=== PATIENT | female | born 1945 | race Two or more races ===

== ENCOUNTER 2023-11-22 00:21 | Inpatient (IN) | payer OTHER ==
[~2023-11-22] VITALS: Ht 157.5 cm; Wt 62.1 kg
[2023-11-22] MEDS ORDERED: PLAVIX75 MG (01:27)
[2023-11-22 01:40] LABS: ABG PH 7.498 (7.35-7.45); ABG PO2 52.8 mmHg (80-100); ABG pCO2 31.9 mmHg (35-45); BASE EXCESS 1.8 mmol/l; BICARBONATE 24.2 mmol/l (23-25); SaO2 90.2 %
[2023-11-22 01:41] LABS: Tco2 25.1 mmol/l; allen test SATISFACTORY; o2 21 %; puncture site RADIAL RIGHT
[2023-11-22 02:19] LABS: PH,URINE 5.5 (5.0-8.0); URINE APPEARANCE Turbid; URINE BILIRRUBIN Negative (NEGATIVE); URINE BLOOD Negative; URINE COLOR Yellow; URINE GLUCOSE Negative (NEGATIVE); URINE LEUKOCYTE Negative; URINE NITRATE Negative; URINE PROTEIN 30 (NEGATIVE); URINE UROBILINOGEN 0.2 E.U./dl
[2023-11-22 02:20] LABS: HEMATOCRIT 44.8 % (36.0-45.00); HEMOGLOBIN 15.2 g/dL (12.0-15.00); MEAN CELL VOLUME 88.9 fL (80.00-100.00); MEAN CORPUSCULAR HEMOGLOBIN 30.2 pg (27.00-32.0); MEAN CORPUSCULAR HGB CONC 33.9 g/dl (32.0-36.0); PLATELET COUNT 170 K/uL (150-450); RED BLOOD COUNT 5.04 M/uL (4.00-6.00); RED CELL DISTRIBUTION WIDTH 15.4 % (11.5-14.5)
[2023-11-22 02:23] LABS: URINE BACTERIA 37.7 uL (0.0-1933); URINE EPITHELIAL CELLS 18.2 uL (0.0-38.8); URINE WBC 21.4 uL (0.0-23.2)
[2023-11-22 02:58] LABS: ALBUMIN 3.4 gm/dL (3.4-5.0); BILIRUBIN TOTAL 0.73 mg/dL (0.3-1.2); CALCIUM 10.4 mg/dL (8.5-10.1); CREATININE SERUM 1.32 mg/dL (0.55-1.02); GFR 38.82; GLOBULINA 5.1 G/DL (2.4-3.5); POTASSIUM 3.4 mEq/L (3.5-5.1); TOTAL PROTEIN 8.5 gm/dL (6.4-8.2)
[2023-11-22 02:59] LABS: INR 1.2; PROTHROMBIN TIME 12.4 SECONDS (9.0-11.5)
[2023-11-22 03:02] LABS: PARTIAL THROMBOPLASTIN TIME 42.2 SECONDS (22.0-34.0)
[2023-11-23 06:16] LABS: HEMATOCRIT 37.5 % (36.0-45.00); HEMOGLOBIN 12.7 g/dL (12.0-15.00); MEAN CELL VOLUME 88.7 fL (80.00-100.00); MEAN CORPUSCULAR HGB CONC 33.9 g/dl (32.0-36.0); PLATELET COUNT 150 K/uL (150-450); RED BLOOD COUNT 4.23 M/uL (4.00-6.00); RED CELL DISTRIBUTION WIDTH 15.4 % (11.5-14.5)
[2023-11-23 06:48] LABS: CALCIUM 9.6 mg/dL (8.5-10.1); GFR 53.48; POTASSIUM 3.98 mEq/L (3.5-5.1)
[2023-11-26 07:00] LABS: ALBUMIN 3.2 gm/dL (3.4-5.0); BILIRUBIN TOTAL 0.51 mg/dL (0.3-1.2); CALCIUM 10.5 mg/dL (8.5-10.1); CREATININE SERUM 0.88 mg/dL (0.55-1.02); GFR 61.98; POTASSIUM 3.2 mEq/L (3.5-5.1); TOTAL PROTEIN 7.2 gm/dL (6.4-8.2)
[2023-11-26 11:25] LABS: ABG PH 7.486 (7.35-7.45); ABG pCO2 34.4 mmHg (35-45)
[2023-11-26 11:26] LABS: ABG PO2 59.6 mmHg (80-100); BASE EXCESS 2.4 mmol/l; BICARBONATE 25.4 mmol/l (23-25); SaO2 92.7 %
[2023-11-26 11:27] LABS: Tco2 26.4 mmol/l; allen test SATISFACTORY; o2 21 %; puncture site RADIAL LEFT
[2023-11-26 13:11] LABS: INR 1.13; PARTIAL THROMBOPLASTIN TIME 30.3 SECONDS (22.0-34.0); PROTHROMBIN TIME 11.8 SECONDS (9.0-11.5)
[2023-11-26 17:22] LABS: ALBUMIN 3.1 gm/dL (3.4-5.0); BILIRUBIN TOTAL 0.51 mg/dL (0.3-1.2); CREATININE SERUM 0.86 mg/dL (0.55-1.02); GFR 63.65; GLOBULINA 3.7 G/DL (2.4-3.5); POTASSIUM 3.39 mEq/L (3.5-5.1); TOTAL PROTEIN 6.8 gm/dL (6.4-8.2)
[2023-11-27 06:51] LABS: HEMATOCRIT 42.1 % (36.0-45.00); HEMOGLOBIN 14.1 g/dL (12.0-15.00); MEAN CELL VOLUME 88.9 fL (80.00-100.00); MEAN CORPUSCULAR HEMOGLOBIN 29.8 pg (27.00-32.0); MEAN CORPUSCULAR HGB CONC 33.6 g/dl (32.0-36.0); PLATELET COUNT 194 K/uL (150-450); RED BLOOD COUNT 4.73 M/uL (4.00-6.00); RED CELL DISTRIBUTION WIDTH 14.9 % (11.5-14.5)
[2023-11-27 07:02] LABS: CALCIUM 9.5 mg/dL (8.5-10.1); CREATININE SERUM 1.29 mg/dL (0.55-1.02); GFR 39.87; POTASSIUM 3.22 mEq/L (3.5-5.1)
[2023-11-27 08:22] LABS: ABG PH 7.393 (7.35-7.45); ABG PO2 191.9 mmHg (80-100); ABG pCO2 34.3 mmHg (35-45); BASE EXCESS -3.6 mmol/l; BICARBONATE 20.5 mmol/l (23-25); SaO2 99.6 %; Tco2 21.5 mmol/l; allen test SATISFACTORY; o2 50 %; puncture site RADIAL LEFT
[2023-11-27 14:51] LABS: PH,URINE 5.5 (5.0-8.0); URINE APPEARANCE Clear; URINE BILIRRUBIN Negative (NEGATIVE); URINE BLOOD Negative; URINE COLOR Yellow; URINE GLUCOSE Negative (NEGATIVE); URINE LEUKOCYTE Trace; URINE NITRATE Negative; URINE PROTEIN 30 (NEGATIVE)
[2023-11-27 14:56] LABS: URINE BACTERIA 541.7 uL (0.0-1933); URINE EPITHELIAL CELLS 13.5 uL (0.0-38.8); URINE RBC 9.9 uL (0.0-20.8); URINE WBC 13.7 uL (0.0-23.2)
[2023-11-27 15:58] LABS: ABG PH 7.386 (7.35-7.45); ABG pCO2 37.8 mmHg (35-45)
[2023-11-27 15:59] LABS: ABG PO2 56.1 mmHg (80-100); BASE EXCESS -2.4 mmol/l; BICARBONATE 22.2 mmol/l (23-25); SaO2 88.2 %; Tco2 23.3 mmol/l; allen test SATISFACTORY; o2 40 %; puncture site RADIAL RIGHT
[2023-11-28 06:17] LABS: HEMATOCRIT 31.6 % (36.0-45.00); MEAN CELL VOLUME 87.5 fL (80.00-100.00); MEAN CORPUSCULAR HEMOGLOBIN 30.6 pg (27.00-32.0); MEAN CORPUSCULAR HGB CONC 34.9 g/dl (32.0-36.0); RED BLOOD COUNT 3.61 M/uL (4.00-6.00); RED CELL DISTRIBUTION WIDTH 15.5 % (11.5-14.5)
[2023-11-28 06:50] LABS: CALCIUM 8.3 mg/dL (8.5-10.1); CREATININE SERUM 0.67 mg/dL (0.55-1.02); GFR 84.9; MAGNESIUM 2.2 mg/dL (1.8-2.4)
[2023-11-28 07:09] LABS: PLATELET COUNT 127 K/uL (150-450)
[2023-11-28 07:55] LABS: POTASSIUM 2.74 mEq/L (3.5-5.1)
[2023-11-28 09:02] LABS: ABG PH 7.501 (7.35-7.45); ABG PO2 148.2 mmHg (80-100); ABG pCO2 29.1 mmHg (35-45); BASE EXCESS 0.3 mmol/l; BICARBONATE 22.3 mmol/l (23-25); SaO2 99.5 %; Tco2 23.2 mmol/l
[2023-11-28 09:03] LABS: allen test SATISFACTORY; o2 40 %; puncture site RADIAL RIGHT
[2023-11-29 06:27] LABS: HEMATOCRIT 30.2 % (36.0-45.00); HEMOGLOBIN 10.2 g/dL (12.0-15.00); MEAN CELL VOLUME 89.3 fL (80.00-100.00); MEAN CORPUSCULAR HEMOGLOBIN 30.1 pg (27.00-32.0); MEAN CORPUSCULAR HGB CONC 33.7 g/dl (32.0-36.0); PLATELET COUNT 130 K/uL (150-450); RED BLOOD COUNT 3.39 M/uL (4.00-6.00); RED CELL DISTRIBUTION WIDTH 15.1 % (11.5-14.5)
[2023-11-29 07:15] LABS: CALCIUM 8.9 mg/dL (8.5-10.1); CREATININE SERUM 0.45 mg/dL (0.55-1.02); GFR 134.41; POTASSIUM 3.43 mEq/L (3.5-5.1)
[2023-11-30 07:35] LABS: HEMATOCRIT 29.2 % (36.0-45.00); MEAN CELL VOLUME 88.2 fL (80.00-100.00); MEAN CORPUSCULAR HEMOGLOBIN 30.2 pg (27.00-32.0); MEAN CORPUSCULAR HGB CONC 34.3 g/dl (32.0-36.0); PLATELET COUNT 146 K/uL (150-450); RED BLOOD COUNT 3.31 M/uL (4.00-6.00); RED CELL DISTRIBUTION WIDTH 15.9 % (11.5-14.5)
[2023-12-02 07:22] LABS: CALCIUM 8.7 mg/dL (8.5-10.1); CREATININE SERUM 0.54 mg/dL (0.55-1.02); GFR 108.9
[2023-12-02 08:32] LABS: POTASSIUM 2.74 mEq/L (3.5-5.1)
[2023-12-03 07:04] LABS: HEMATOCRIT 29.3 % (36.0-45.00); HEMOGLOBIN 10.1 g/dL (12.0-15.00); MEAN CELL VOLUME 88.1 fL (80.00-100.00); MEAN CORPUSCULAR HEMOGLOBIN 30.4 pg (27.00-32.0); MEAN CORPUSCULAR HGB CONC 34.5 g/dl (32.0-36.0); PLATELET COUNT 211 K/uL (150-450); RED BLOOD COUNT 3.32 M/uL (4.00-6.00); RED CELL DISTRIBUTION WIDTH 15.7 % (11.5-14.5)
[2023-12-03 07:19] LABS: CALCIUM 8.4 mg/dL (8.5-10.1); CREATININE SERUM 0.59 mg/dL (0.55-1.02); GFR 98.32
[2023-12-03 07:29] LABS: POTASSIUM 3.02 mEq/L (3.5-5.1)
[2023-12-04 11:15] LABS: CALCIUM 8.8 mg/dL (8.5-10.1); CREATININE SERUM 0.58 mg/dL (0.55-1.02); GFR 100.28
[2023-12-04 11:23] LABS: POTASSIUM 2.95 mEq/L (3.5-5.1)
== END 2023-12-04 20:25 | DRG 521 ==
LOC: ER 00:21 → MEDI 13:28 → ICU 11-27 01:26 → SURG 11-29 14:50
PROVIDERS: General Practice; Internal Medicine; Internal Medicine Nephrology; Orthopaedic Surgery; ADMIT Internal Medicine; ATTEND Internal Medicine
PROC: B44HZZZ Ultrasonography of Bilateral Lower Extremity Arteries (ICD-10-PCS; 2023-11-22)
PROC: 3E0F7GC Introduction of Other Therapeutic Substance into Respiratory Tract, Via Natural or Artificial Opening (ICD-10-PCS; 2023-11-22)
PROC: 4A12X4Z Monitoring of Cardiac Electrical Activity, External Approach (ICD-10-PCS; 2023-11-22)
PROC: 02HV33Z Insertion of Infusion Device into Superior Vena Cava, Percutaneous Approach (ICD-10-PCS; 2023-11-26)
PROC: 0SRR0JZ Replacement of Right Hip Joint, Femoral Surface with Synthetic Substitute, Open Approach (ICD-10-PCS; principal; 2023-11-27)
PROC: 0QQ40ZZ Repair Right Acetabulum, Open Approach (ICD-10-PCS; 2023-11-27)
PROC: 5A1945Z Respiratory Ventilation, 24-96 Consecutive Hours (ICD-10-PCS; 2023-11-27)
DX: S72.091A Other fracture of head and neck of right femur, initial encounter for closed fracture (principal); I21.A1 Myocardial infarction type 2; J95.821 Acute postprocedural respiratory failure; T81.11XA Postprocedural cardiogenic shock, initial encounter; I48.20 Chronic atrial fibrillation, unspecified; N17.8 Other acute kidney failure; I50.20 Unspecified systolic (congestive) heart failure; E87.6 Hypokalemia; I95.89 Other hypotension; D72.829 Elevated white blood cell count, unspecified; W13.3XXA Fall through floor, initial encounter; Y92.098 Other place in other non-institutional residence as the place of occurrence of the external cause; I11.0 Hypertensive heart disease with heart failure

== ENCOUNTER 2024-01-10 14:02 | Outpatient (CLI) | payer OTHER ==
[~2024-01-10 14:02] MED LIST: PLAVIX75 MG
== END 2024-01-10 14:08 | disposition home or self-care (01) ==
LOC: RAD 14:02
PROVIDERS: ATTEND Orthopaedic Surgery
DX: S72.031D Displaced midcervical fracture of right femur, subsequent encounter for closed fracture with routine healing (principal); Z96.642 Presence of left artificial hip joint